=== PATIENT | female | born 1990 | race Caucasian/White ===

== ENCOUNTER 2019-12-11 20:30 | Observation (INO) | payer OTHER ==
[~2019-12-11] VITALS: Ht 157.5 cm; Wt 68.9 kg
[2019-12-11 21:05] LABS: APPEARANCE,URINE CLEAR (CLEAR); BILIRUBIN,URINE NEGATIVE (NEGATIVE); GLUCOSE, URINE (UA) NEGATIVE (NEGATIVE); KETONES,URINE NEGATIVE (NEGATIVE); LEUKOCYTE ESTERASE ,URINE NEGATIVE (NEGATIVE); NITRATE,URINE NEGATIVE (NEGATIVE); OCCULT BLOOD,URINE NEGATIVE (NEGATIVE); PROTEIN,URINE NEGATIVE (NEGATIVE); UROBILINOGEN,URINE 0.2 mg/dL (<=1.0)
[2019-12-11 21:14] LABS: BACTERIA,URINE Rare /HPF (None Seen); RBC,URINE 0-2 /HPF (0-2); SQUAMOUS EPITHELIAL CELL,UR Few /LPF (None Seen); WBC,URINE 0-2 /HPF (0-5)
[2019-12-11 21:37] VITALS: BP 126/79
== END 2019-12-11 23:45 | disposition left against medical advice (07) ==
LOC: 4S 20:30
PROVIDERS: ADMIT Obstetrics & Gynecology; ATTEND Obstetrics & Gynecology
DX: O26.893 Other specified pregnancy related conditions, third trimester (principal); Z20.828 Contact with and (suspected) exposure to other viral communicable diseases; R10.9 Unspecified abdominal pain; N89.8 Other specified noninflammatory disorders of vagina; Z3A.32 32 weeks gestation of pregnancy; Z79.899 Other long term (current) drug therapy
CPT/HCPCS: 59025; 76811; 80307; 80349; 87426; 87491; 87591; 89060; 96360; 99219